=== PATIENT | male | born 1955 | race Caucasian/White ===

== ENCOUNTER 2020-02-07 08:21 | Emergency (ER) | payer BC, SELFPAY ==
--- NOTE | 2020-02-07 08:29 | ED.GENADULT ---
HPI - General Adult General Chief complaint: Ear Stated complaint: Ear lobe inflammed Time Seen by Provider: 02/07/20 08:29 Source: patient Mode of arrival: ambulatory Limitations: no limitations History of Present Illness HPI narrative: 64-year-old male patient presents to the [facility] with complaints of left ear pain. 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 Patient states typically he does get these inflamed areas to his left ear and he usually pops them on his own. Patient states he has an area to the left earlobe today that he is concerned could be infected. Patient states he really has not been using anything on the earlobe. Denies any fevers, body aches or chills. Related Data Allergies Allergy/AdvReac Type Severity Reaction Status Date / Time No Known Allergies Allergy Mild Verified 01/24/11 15:17 Review of Systems Review of Systems: Narrative: CONSTITUTIONAL: Denies fever, chills, or sweats. EYES: Denies visual changes, redness, or discharge. ENT: Denies rhinorrhea, congestion, sore throat, or otalgia. Positive left earlobe pain x5 days. CARDIOVASCULAR: Denies chest pain, palpitations, or edema. RESPIRATORY: Denies cough or dyspnea. GASTROINTESTINAL: Denies abdominal pain, nausea, vomiting, or diarrhea. GENITOURINARY: Denies dysuria or hematuria. SKIN: Denies rash or itching. MUSCULOSKELETAL: Denies back pain, joint pain, or myalgia. NEUROLOGIC: Denies headache, numbness, or weakness. PSYCHIATRIC: Denies anxiety or depression. PMFSH Comments At the time of my signature I agree with nursing past medical history, surgical, social, and family history. There is no relevant family history pertinent to the presenting complaint. Exam Narrative: Exam Narrative: GENERAL: Well-appearing, well-nourished, and in no acute distress. HEAD: Normocephalic, atraumatic. EYES: PERRLA and EOMI. ENT: Nares clear, no rhinorrhea or epistaxis. Mucous membranes moist. Patient has a raised reddened slightly warm area to the left earlobe. The area appears to be approximately 2 cm in diameter. It is tender to the touch. NECK: Supple. No lymphadenopathy CHEST: Clear to auscultation. No respiratory distress. HEART: Regular rate and rhythm. No murmur heard. Normal peripheral pulses. ABDOMEN: Soft, nontender, nondistended, normal active bowel sounds. EXTREMITIES: Normal range of motion. No edema. SKIN: Warm, dry, no rash. NEURO: No focal deficits. Alert and oriented x3. Course Vital Signs Vital signs: Vital Signs Pulse Rate 68 02/07/20 08:30 Respiratory Rate 18 02/07/20 08:30 Blood Pressure 153/86 H 02/07/20 08:30 Pulse Oximetry 98 02/07/20 08:30 Pulse Rate 68 02/07/20 08:30 Respiratory Rate 18 02/07/20 08:30 Blood Pressure 153/86 H 02/07/20 08:30 Pulse Oximetry 98 02/07/20 08:30 Vital signs reviewed. The patient has been informed that they may have pre-hypertension or Hypertension based on a BP reading in the department. I recommend that the patient call the primary care provider listed on their discharge instructions or a physician of their choice this week to arrange follow up for further evaluation of possible pre-hypertension or Hypertension Medical Decision Making Differential Diagnosis Differential Diagnosis: Differential diagnosis: Otitis media, otitis externa, perforated TM, infection of the outer ear, foreign body or cerumen impaction, ruptured TM, acute mastoiditis, ligament otitis externa, dehydration, pneumonia, sepsis, dental or intraoral infection, TMJ dysfunction Discussed with patient that the fact that he does have a history of cauliflower ear and because the tissue and the cartilage on the ear can be very sensitive and can actually cause more damage by opening it up as well as deformity I do not feel comfortable opening up at this time. Discussed with patient we will go ahead and place him on antibiotics and I encouraged hi
[2020-02-07 08:30] VITALS: BP 153/86; PULSE 68; RESP 18; O2SAT 98
[2020-02-07 08:53] VITALS: TEMP 36.8
== END 2020-02-07 08:49 | disposition home or self-care (01) ==
PROVIDERS: Emergency Provider Nurse Practitioner Family
DX: M95.12 Cauliflower ear, left ear (principal)
CPT/HCPCS: 99203; G0463

== ENCOUNTER 2022-08-01 17:29 | Emergency (ER) | payer OTHER, BC, SELFPAY ==
--- NOTE | ~2022-08-01 | XR_ITS ---
XR finger 1st LT min 2V DATE: 08/01/2022 18:01 INDICATION: Metal bar fell on thumb. Pain. TECHNIQUE: 3 views COMPARISON: None FINDINGS: No fracture or dislocation, periosteal reaction or bone destruction. IMPRESSION: No fracture or dislocation Reviewed, dictated and finalized at location A. IMPRESSION: No fracture or dislocation
[2022-08-01 17:39] VITALS: BP 156/82; PULSE 67; RESP 16; TEMP 36.9; O2SAT 98
--- NOTE | 2022-08-01 18:07 | ED.GENADULT ---
HPI - General Adult General Chief complaint: Extremity Injury, Upper Stated complaint: injury may 19 left thumb Source: patient Mode of arrival: ambulatory Limitations: no limitations History of Present Illness HPI narrative: Patient presents for evaluation of a catching sensation in the interphalangeal joint of the left thumb. He works fixing the country. He states that he was at work on 07/19/22 when a piece of metal equipment fell on his left hand. He immediately applied ice. He states he never noted any significant amount of swelling in the digit, which he attributes to application of ice. He has had minimal pain in that digit. He states he has noted a catching sensation as of 07/26/22. He informed his employer and they recommended he be evaluated by a medical provider. He reports some redness to palmar aspect of left hand. No additional complaints or concerns. Related Data Allergies Allergy/AdvReac Type Severity Reaction Status Date / Time No Known Allergies Allergy Mild Verified 01/24/11 15:17 Review of Systems Review of Systems: CONSTITUTIONAL: Denies fever, chills, or sweats. EYES: Denies visual changes, redness, or discharge. ENT: Denies rhinorrhea, congestion, sore throat, or otalgia. CARDIOVASCULAR: Denies chest pain, palpitations, or edema. RESPIRATORY: Denies cough or dyspnea. GASTROINTESTINAL: Denies abdominal pain, nausea, vomiting, or diarrhea. GENITOURINARY: Denies dysuria or hematuria. SKIN: Denies rash or itching. MUSCULOSKELETAL: Reports catching sensation in the interphalangeal joint of the left hand NEUROLOGIC: Denies headache, numbness, dizziness, or weakness. PSYCHIATRIC: Denies anxiety or depression. [facility] Past Medical History Medical History (Updated 08/01/22 @ 18:27 by MAYITO Houston, SHIRA) No pertinent past medical history Surgical History Surgical History History of removal of cyst Family History Family History Father Family history non-contributory Social History Social History Substance use: never Gender identity (if verbalized by the patient): Male Exam Narrative: GENERAL: Well-appearing, well-nourished, and in no acute distress. HEAD: Normocephalic, atraumatic. EYES: PERRLA and EOMI. ENT: Nares clear, no rhinorrhea or epistaxis. Mucous membranes moist. Oropharynx without tonsillar hypertrophy exudate or other lesions. Bilateral TMs pearly pro nonbulging NECK: Supple. No adenopathy or masses. No carotid bruits or JVD CHEST: Clear to auscultation. No respiratory distress. No wheezes rales or rhonchi HEART: Regular rate and rhythm. No murmur heard. Normal peripheral pulses. ABDOMEN: Soft, nontender, nondistended, normal active bowel sounds. EXTREMITIES: Intermittent delays with flexion and extension of the interphalangeal joint of the left thumb consistent with trigger finger SKIN: Warm, dry, no rash. NEURO: No focal deficits. Alert and oriented x3. PSYCH: Normal mood and affect. Course Course Emergency Course: This is a 67-year-old male who presented for evaluation of a catching sensation in the left thumb. He has evidence of trigger finger. There is no fracture to suggest this is the cause of his symptoms. He likely has ligamentous/tendon injury. Velcro wrist splint with thumb support may be of benefit. We will have him follow-up with plastics. He does not have considerable pain warranting prescription pain medication. Go to ER for temperature changes or intractable pain. Patient in agreement with plan of care. Level of Care: Express Care Visit Vital Signs Vital signs: Vital Signs Temperature 36.9 C 08/01/22 17:39 Pulse Rate 67 08/01/22 17:39 Respiratory Rate 16 08/01/22 17:39 Blood Pressure 156/82 H 08/01/22 17:39 Pulse Oximetry 98 08/01/22 17:39
== END 2022-08-01 18:36 | disposition home or self-care (01) ==
PROVIDERS: Emergency Provider Nurse Practitioner
DX: S69.82XA Other specified injuries of left wrist, hand and finger(s), initial encounter (principal); W20.8XXA Other cause of strike by thrown, projected or falling object, initial encounter; Y99.0 Civilian activity done for income or pay; M65.312 Trigger thumb, left thumb
CPT/HCPCS: 73140; 99213; G0463

== ENCOUNTER 2025-05-08 19:30 | Emergency (ER) | payer SELFPAY ==
--- OUTSIDE RECORDS SUMMARY | 2025-05-08 19:33 | XMS_ITS | Encounter Summary ---
Author Organization [facility] Address 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
--- OUTSIDE RECORDS SUMMARY | 2025-05-08 19:33 | XMS_ITS | Encounter Summary ---
Author Organization [facility] Address [address] [place] [address] Care Team Providers Care Community Living Coach Name Role Phone Patti Arellano DO Primary Care Provider Encounter Details Date Type Department Care Team (Late st Contact Info) Description 07/28/2002 Outpatient Historical [facility] [place] [facility] [address] [place] [address] [place] 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
--- OUTSIDE RECORDS SUMMARY | 2025-05-08 19:33 | XMS_ITS | Encounter Summary ---
Author Organization [facility] Address 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
--- OUTSIDE RECORDS SUMMARY | 2025-05-08 19:33 | XMS_ITS | Encounter Summary ---
Author Organization [facility] Address [address] [place] [address] Care Team Providers Care Real Estate Administrator Name Role Phone Patti Arellano DO Primary Care Provider Encounter Details Date Type Department Care Team (Late st Contact Info) Description 03/01/2000 Outpatient Historical HIS [facility] DEPT [place] 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
--- OUTSIDE RECORDS SUMMARY | 2025-05-08 19:33 | XMS_ITS | Encounter Summary ---
Author Organization [facility] Address 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
--- OUTSIDE RECORDS SUMMARY | 2025-05-08 19:33 | XMS_ITS ---
Author Organization [facility] Address [address] [facility] [address] [place] [address] Care Team Providers Care Superintendent Container Terminal Name Role Phone Migration, Provider Unavailable Unavailable REASON FOR VISIT EMR-Yovany Encounters Encounter Location Date Provider Diagnosis [facility] [address] [place], [place] [id number] 01/03/2025 Prov ider Migration Plan Of Treatment No Information Progress Notes * REJI BELLDOB:[birth year] (69 yo Other)Acc No.[id number]:01/03/2025 Patient: REJI FLORES :1955 A ge:69 Y S ex:Unknown Phone: Address:[address] [place] [address], [address] Subjective: * Chief Complaints: * E MR-Yovany * * Date:
--- OUTSIDE RECORDS SUMMARY | 2025-05-08 19:33 | XMS_ITS | Patient Health Record ---
Author Organization [facility] Address [address] [facility] [address] [place] [address] Care Team Providers Care Picker And Sorter Load And Unload Name Role Phone Migration, Provider Unavailable Unavailable Reason For Referral No Information Encounters Encounter Location Date Provider Diagnosis [facility] [address] [place], [place] [id number] 01/03/2025 Prov ider Migration [facility] [address] [place], [place] [id number] 01/04/2025 Prov ider Migration Plan Of Treatment No Information
--- OUTSIDE RECORDS SUMMARY | 2025-05-08 19:33 | XMS_ITS | Encounter Summary ---
Author Organization [facility] Address 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
--- OUTSIDE RECORDS SUMMARY | 2025-05-08 19:33 | XMS_ITS | Encounter Summary ---
Author Organization [facility] Address [address] [place] [address] Care Team Providers Care Social Media Project Manager Name Role Phone Patti Arellano DO Primary Care Provider Encounter Details Date Type Department Care Team (Late st Contact Info) Description 04/16/2003 Outpatient Historical [facility] Family Medicine [facility] [address] [place] [address] [place] 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
--- OUTSIDE RECORDS SUMMARY | 2025-05-08 19:33 | XMS_ITS | Encounter Summary ---
Author Organization [facility] Address 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
--- OUTSIDE RECORDS SUMMARY | 2025-05-08 19:33 | XMS_ITS | Encounter Summary ---
Author Organization [facility] Address [address] [place] [address] Care Team Providers Care Sas Analyst Name Role Phone Patti Arellano DO Primary Care Provider Encounter Details Date Type Department Care Team (Late st Contact Info) Description 07/02/2003 Outpatient Historical [facility] Family Medicine [facility] [address] [place] [address] [place] 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
--- OUTSIDE RECORDS SUMMARY | 2025-05-08 19:33 | XMS_ITS ---
Author Organization [facility] Address [address] [address] Care Team Providers Care Cashier Receptionist Name Role Phone Migration, Provider Unavailable Unavailable REASON FOR VISIT EMR-Yovany Encounters Encounter Location Date Provider Diagnosis [facility] [address] [place], [place] [id number] 01/04/2025 Prov ider Migration Plan Of Treatment No Information Progress Notes * REJI BELLDOB:[birth year] (69 yo Other)Acc No.[id number]:01/04/2025 Patient: REJI FLORES :1955 A ge:69 Y S ex:Unknown Phone: Address:[address] [place] [address], [address] Subjective: * Chief Complaints: * E MR-Yovany * * Date:
--- OUTSIDE RECORDS SUMMARY | 2025-05-08 19:33 | XMS_ITS | Continuity of Care Document ---
Author Name [facility] Organization [facility] Care Team Providers Care Silica Dry Press Helper Name Role Phone [facility] Unavailable Unavailable Problems Combined list of problems from Department of Defense and Veterans Affairs facilities. It does not include entries that were removed or entered in error. Problem Status Onset Date Problem Type Date of Resolution Comments Source Epidermal Cyst * (ICD-9-CM 706.2) Active Condition [facility] Tobacco Use Disorder * (ICD-9-CM 305.1) Active Condition [facility] Immunizations Combined list of available immunizations from the Department of [facility] and [facility] facilities. Immunization Series Date Given Administered By Site Reaction Lot Number CVX Code Drug Assistant Construction Superintendent Status Comments Source TDAP 2007 115 complet ed [facility] Encounters Combined list of: 1) Encounters from Department of Veterans Affairs facilities going backup to the last 18 months, not all [place] inpatient encounters are included; 2) Encounters from the Department of [facility] facilities going backup to 280 months. Location Location Details Encounter Type Encounter Number Reason For Visit Attending Provider ADM Date DC Date Status Disposition Source [facility] Outpatient Encounter [id number] 05/19 [facility] Social History Combined list of available smoking, tobacco, and other social history from Department of [facility] and Veterans Affairs facilities. Social History Type Response Date Comment Sourc e Tobacco smoking status [facility]IS TOBACCO OFFERED STOP SMOKING CLINIC 01/24/2008 [facility] History of tobacco use CURRENT TOBACCO USER 01/24/2008 [facility]
--- OUTSIDE RECORDS SUMMARY | 2025-05-08 19:33 | XMS_ITS | Encounter Summary ---
Author Organization [facility] Address 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
--- OUTSIDE RECORDS SUMMARY | 2025-05-08 19:34 | XMS_ITS | Encounter Summary ---
Author Organization [facility] Address [address] [place] [address] Care Team Providers Care Clinical Nurse Educator Name Role Phone Patti Arellano DO Primary Care Provider Encounter Details Date Type Department Care Team (Late st Contact Info) Description 02/09/2000 Outpatient Historical HIS [facility] DEPT [place] 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
--- OUTSIDE RECORDS SUMMARY | 2025-05-08 19:34 | XMS_ITS | Referral Summary ---
Author Organization [address] Address [address] [place] [address] Care Team Providers Care Band Sawing Machine Operator Name Role Phone No, Physician Primary Care Provider [phone] Allergies No known active allergies Medications methylPREDNISolo ne (Medrol, Asif,) 4 mg DosepackIndicati ons:Rash and nonspecific skin eruption follow package directions 1 packet Active Active Problems Problem Noted Date Diagnosed Date Epidermoid cyst of skin 10/23/2023 HTN (hypertension), benign 04/16/2014 Tobacco use disorder 04/16/2014 Immunizations Immunization Administration Dates Next Due Pfizer SARS-CoV-2 Monovalent Vaccination (12+ Yrs) BYERS-READY TO USE 10/20/2021 Social History Tobacco Use Types Packs/Day Years Used Date Smoking Tobacco: Former Cigarettes Smokeless Tobacco: Never Comments:1 pack every 3 days . Personal Safety Answer Date Recorded Getting School Help Needed Not on file 10/23 Sex and Gender Information Value Date Recorded Sex Assigned at Not on file Legal Sex Male 2:27 PM CDT Gender Identity Not on file Sexual Orientation Not on file Last Filed Vital Signs Vital Sign Reading Time Taken Comments Blood Pressure 164/90 10/23/2023 7:00 PM CIVIL ENGINEERING MANAGER Pulse 71 10/23/2023 7:00 PM CIVIL ENGINEERING MANAGER Temperature 36.6 C (97.8 F) 10/23/2023 7:00 PM CIVIL ENGINEERING MANAGER Respiratory Rate 18 10/23/2023 7:00 PM CIVIL ENGINEERING MANAGER Oxygen Saturation 96% 10/23/2023 7:00 PM CIVIL ENGINEERING MANAGER Inhaled Oxygen Concentration - - Weight 114.3 kg (252 lb) 10/23/2023 7:00 PM CIVIL ENGINEERING MANAGER Height 182.9 cm (6' 0.01) 10/23/2023 7:00 PM CS T Body Mass Index 34.17 10/23/2023 7:00 PM CIVIL ENGINEERING MANAGER Plan of Treatment Not on file Insurance Care Teams Band Sawing Machine Operator Relationship Specialty Start Date End Date No, Physician PCP - General 04/15/20
--- OUTSIDE RECORDS SUMMARY | 2025-05-08 19:34 | XMS_ITS | Clinical Summary ---
Author Organization [address] Address [address] [place] [address] Care Team Providers Care Office Specialist Name Role Phone No, Physician Primary Care Provider Allergies No known active allergies Medications methylPREDNISolo ne (Medrol, Asif,) 4 mg DosepackIndicati ons:Rash and nonspecific skin eruption follow package directions 1 packet Active Active Problems Problem Noted Date Diagnosed Date Epidermoid cyst of skin 10/23/2023 HTN (hypertension), benign 04/16/2014 Tobacco use disorder 04/16/2014 Immunizations Immunization Administration Dates Next Due Pfizer SARS-CoV-2 Monovalent Vaccination (12+ Yrs) BYERS-READY TO USE 10/20/2021 Surgical History Surgery Date Site/Laterality Comments NO PAST SURGERIES Medical History Medical History Date Comments No known health problems Family History Medical History Relation Name Comments No Known Problems Brother Bone cancer Father Lung cancer Father Sarcoidosis Mother No Known Problems Sister Relation Name Status Comments Brother Alive Father Mother Sister Alive Social History Tobacco Use Types Packs/Day Years [...] on file Sexual Orientation Not on file Obstetrics History Last Filed Vital Signs Vital Sign Reading Time Taken Comments Blood Pressure 164/90 10/23/2023 7:00 PM LEATHER PARTS MATCHER Pulse 71 10/23/2023 7:00 PM LEATHER PARTS MATCHER Temperature 36.6 C (97.8 F) 10/23/2023 7:00 PM LEATHER PARTS MATCHER Respiratory Rate 18 10/23/2023 7:00 PM LEATHER PARTS MATCHER Oxygen Saturation 96% 10/23/2023 7:00 PM LEATHER PARTS MATCHER Inhaled Oxygen Concentration - - Weight 114.3 kg (252 lb) 10/23/2023 7:00 PM LEATHER PARTS MATCHER Height 182.9 cm (6' 0.01) 10/23/2023 7:00 PM CS T Body Mass Index 34.17 10/23/2023 7:00 PM LEATHER PARTS MATCHER Plan of Treatment Health Maintenance Due Date Last Done Comments Colon Cancer Screening-Colonoscopy 1955 Depression Screening 1955 Fall Risk Assessment 1955 Hepatitis C Screening 1955 Prostate Cancer Screening-PSA 1955 Hepatitis B Screening 1975 Pneumococcal vaccine 65+ (2 of 2 - PCV) 09/16/2021 09/16/2020 Abdominal Aortic Aneurysm (A AA) Screen 2022 Well Visit 65+ 2022 Covid-19 Vaccine (2 - 2023-2 5 season) 2024 10/20/2021 Influenza Vaccine (#1) 2025 0, 09/10/2019, 09/08/2018, Additional history exists DTaP/Tdap/Td Vaccine (3 - Td or Tdap) 12/28/2027 12/27/2017, 12/27/2007 Zoster Vaccine Completed 06/02/2018, 01/18/2018 Insurance Care Teams Office Specialist Relationship Specialty Start Date End Date No, Physician PCP - General 04/15/20
--- OUTSIDE RECORDS SUMMARY | 2025-05-08 19:35 | XMS_ITS | Clinical Summary ---
Author Organization [facility] [facility] Address [address] [place] [address] Care Team Providers Care Elevator Constructor Hydraulic Name Role Phone Axeldennise Patti Pradeep RINCON Primary Care Provider Allergies No known active allergies Medications diclofenac sodium (VOLTAREN) 1 % gelIndications:P ain in both knees, unspecified chronicity Apply 2 Grams to affected area 3 times daily as needed for Pain. 100 Gram 2 0 Active Active Problems Problem Noted Date Diagnosed Date HTN (hypertension), benign 04/16/2014 Tobacco use disorder 04/16/2014 Resolved Problems Problem Noted Date Diagnosed Date Resolved Date Lateral epicondylitis (tennis elbow) 04/16/2014 12/27/2017 Shingles 09/28/2011 12/27/2017 Immunizations Immunization Administration Dates Next Due (ADACEL/BOOSTRIX)(10 YR UP) TDAP VACCINE, 0.5ML, IM 12/27/2017 (PNEUMOVAX 23)(50 YRS UP) PN EUMOCOCCAL POLYSACCHARIDE (PPV23) 0.5 ML, IM 09/16/2020 Influenza Seasonal Unspecified Formulation IM Family History Medical History Relation Name Comments Colon Cancer Neg Hx Social History Tobacco Use Types Packs/Day Years Used Date Smoking Tobacco: Every Day Cigarettes 0.3 20 Started: 12/27/1997; Last attempted to quit: 12/27/2017 Smokeless Tobacco: Never Tobacco Cessation:Ready to Q uit: Yes; Counseling Given: No Alcohol Use Standard Drinks/Week Comments Yes 0 (1 standard drink = 0.6 oz pur e alcohol) occasional Sex and Gender Information Value Date Recorded Sex Assigned at Not on file Legal Sex Male 2:42 AM SHEET METAL SHOP SUPERVISOR Gender Identity Not on file Sexual Orientation Not on file Occupation Industry Job Start Date Job End Date Not on file Not on file Not on file Not on file Last Filed Vital Signs Vital Sign Reading Time Taken Comments Blood Pressure 130/74 09/16/2020 8:06 AM SHEET METAL SHOP SUPERVISOR Pulse 60 09/16/2020 8:06 AM SHEET METAL SHOP SUPERVISOR Temperature 36.5 C (97.7 F) 09/16/2020 8:06 AM SHEET METAL SHOP SUPERVISOR Respiratory Rate 18 03/01/2018 8:27 AM CDT Oxygen Saturation 99% 09/16/2020 8:06 AM SHEET METAL SHOP SUPERVISOR Inhaled Oxygen Concentration - - Weight 104.3 kg (230 lb) 09/16/2020 8:06 AM SHEET METAL SHOP SUPERVISOR Height 182.9 cm (6') 09/16/2020 8:06 AM SHEET METAL SHOP SUPERVISOR Body Mass Index 31.19 09/16/2020 8:06 AM SHEET METAL SHOP SUPERVISOR Plan of Treatment Health Maintenance Due Date Last Done Comments FIT-DNA Q 3 years 2002 FIT/FOBT Q 1 year 2002 Flex Sig/CT Colonography Q 5 years 2002 ZOSTER VACCINE (1 of 2) 2007 COLORECTAL SCREENING 03/01/2021 03/01/2018, 03/01/2018, 03/01/2018 Colorectal Cancer Screening 03/01/2021 PNEUMOCOCCAL VACCINE 50+ YEA RS (2 of 2 - PCV) 09/16/2021 09/16/2020 Preventative Visit- Commercial 10/08/2024 1 11/17/2019, 12/27/2017, 04/16/2014, Additional history exists INFLUENZA VACCINE (#1) 2025 07/22/2020 DTAP/TDAP/TD VACCINES (3 - T d or Tdap) 12/28/2027 12/27/2017, 12/27/2007 RSV VACCINE (60+ or ) (1 - 1-dose 75+ series) 2032 Procedures Procedure Name Priority Date/Time Associated Diagnosis Comments COLONOSCOPY REPORT 03/01/2018 8: 09 AM CDT from Last 3 Months or Most Recently Relevant to Health Maintenance Results * COLONOSCOPY REPORT (03/01/2018 8:09 AM CDT) Narrative Procedure Note Kelvin Daigle MD - 03/01/2018 8:08 AM CDT [facility] Endoscopy Patient Name: Av Phillip Procedure Date: 03/01/2018 Date of : 1955 Admit Type: Outpatient Attending MD: Kelvin Daigle MD Procedure: Colonoscopy Indications: Screening for colorectal malignant neoplasm, This is the patient's first colonoscopy Providers: Kelvin Daigle MD Referring MD: Patti Arellano DO Medicines: TIVA Complications: No immediate complications. Procedure: Informed consent was obtained for the procedure, including moderate sedation after risks were discussed. Based on the pre-procedure assessment, including review of the patient's medical history, medications, allergies, and review of systems, the patient was deemed to be an appropriate candidate for sedation. A timeout was performed. Continuous ECG monitoring, pulse oximetry, blood pressure monitoring, and direct observation were performed. The was introduced through the anus and advanced to the terminal ileum. The colonoscopy was performed without difficulty. The patient tolerated the procedure well. The quality of the bowel preparation was excellent. Estimated Blood Loss: Estimated blood loss: none. Findings: The terminal ileum appeared normal. A 10 mm polyp was found in the distal descending colon. The polyp was sessile. The polyp was removed with a cold snare. Resection and retrieval were complete. To prevent bleeding after the polypectomy, one hemostatic clip was successfully placed (MR conditional). There was no bleeding at the end of the procedure. The retroflexed view of the distal rectum and anal verge was normal and showed no anal or rectal abnormalities. Impression: - The examined portion of the ileum was normal. - One 10 mm polyp in the distal descending colon, removed with a cold snare. Resected and retrieved. Clip (MR conditional) was placed. - The distal rectum and anal verge are normal on retroflexion view. Recommendation: - Await pathology results. - Repeat colonoscopy in 3 - 5 years for surveillance based on pathology results. Kelvin Daigle MD 03/01/2018 8:08:01 AM This report has been signed electronically. Number of Addenda: [address]; [place] [address] Kelvin Daigle MD GI PROCEDURE ORDERABLES Final R esult from Last 3 Months or Most Recently Relevant to Health Maintenance Insurance [employer] BLUE PREFERRED Advance Directives For more information, please contact: [phone] * Full Code (Latest Code Status on File) Date Activated Date Inactivated Comments 03/01/2018 7:04 AM 03/01/2018 10:41 AM Care Teams Elevator Constructor Hydraulic Relationship Specialty Start [place] [address] [address] [place] [address] PCP - General Family Practice 03/17/15
--- OUTSIDE RECORDS SUMMARY | 2025-05-08 19:36 | XMS_ITS | Continuity of Care Document ---
Author Name [facility] Organization [facility] Care Team Providers Care Mail Rider Name Role Phone [facility] Unavailable Unavailable Problems Combined list of problems from Department of Defense and Veterans Affairs facilities. It does not include entries that were removed or entered in error. Problem Status Onset Date Problem Type Date of Resolution Comments Source Epidermal Cyst * (ICD-9-CM 706.2) Active Condition [facility] Tobacco Use Disorder * (ICD-9-CM 305.1) Active Condition [facility] Immunizations Combined list of available immunizations from the Department of [facility] and Veterans [facility] facilities. Immunization Series Date Given Administered By Site Reaction Lot Number CVX Code Drug Table Games Floor Supervisor Status Comments Source TDAP 2007 115 complet ed [facility] Encounters Combined list of: 1) Encounters from Department of Veterans Affairs facilities going backup to the last 18 months, not all [place] inpatient encounters are included; 2) Encounters from the Department of [facility] facilities going backup to 280 months. Location Location Details Encounter Type Encounter Number Reason For Visit Attending Provider ADM Date DC Date Status Disposition Source [facility] Outpatient Encounter [id number] 05/19 [facility] N Social History Combined list of available smoking, tobacco, and other social history from Department of [facility] and Veterans Affairs facilities. Social History Type Response Date Comment Sourc e Tobacco smoking status NHIS TOBACCO OFFERED STOP SMOKING CLINIC 01/24/2008 [facility] History of tobacco use CURRENT TOBACCO USER 01/24/2008 [facility]
[2025-05-08 19:37] VITALS: BP 214/85; PULSE 75; RESP 24; TEMP 36.8; O2SAT 99
--- NOTE | 2025-05-08 19:37 | ED.LOWEXIN ---
HPI - Extremity Injury (Lower) General Stated Complaint: right ankle swelling Time Seen by Provider: 05/08/25 19:38 Source: patient Mode of arrival: ambulatory Limitations: no limitations History of Present Illness HPI Narrative: 69 y/o male presented for c/o bilateral ankle swelling and elevated BP since 03/28/25 while on vacation. States it started after a sunburn to both feet. Pt says I feel off. Denies chest pain, palpitations, sob, wheezing, n/v/d/f/c. Says swelling is better when he wakes in the morning. States he is a and has not seen a doctor for several years. Denies hx HTN, states he was told it is borderline in the past. hx smoking; quit 4 years ago, and alcohol, says mild to moderate. Related Data Home Medications ?Medication ?Instructions ?Recorded ?Confirmed ?Last Taken ?Type No Home Medications 05/08/25 05/08/25 Unknown History Allergies Allergy/AdvReac Type Severity Reaction Status Date / Time No Known Allergies Allergy Mild Verified 05/08/25 19:32 Review of Systems Review of Systems: CONSTITUTIONAL: Denies body aches, fever, chills, or sweats. EYES: Denies visual changes, redness, or discharge. ENT: Denies rhinorrhea, congestion, sore throat, or otalgia. CARDIOVASCULAR: Denies chest pain, palpitations, Reports BLE edema. RESPIRATORY: Denies cough or dyspnea. GASTROINTESTINAL: Denies abdominal pain, nausea, vomiting, or diarrhea. GENITOURINARY: Denies dysuria or hematuria. SKIN: Denies rash, or wounds. MUSCULOSKELETAL: Denies back pain, joint pain, or myalgia. NEUROLOGIC: Denies headache, numbness, tingling, or weakness. PSYCH: Denies depression or anxiety. All systems reviewed & are unremarkable except as noted in HPI and below PMFSH Past Medical History Medical History (Updated 05/08/25 @ 20:00 by Yasmin Pierce APRN) No pertinent past medical history Surgical History Surgical History History of removal of cyst Family History Family History Father Family history non-contributory Social History Social History (Updated 05/08/25 @ 19:57 by Yasmin Pierce, COMPUTER HARDWARE ENGINEER) Smoking status: Former smoker Tobacco type: cigarettes Substance use: never Gender identity (if verbalized by the patient): Male Comments At time of signature, I have reviewed and agree with nursing past medical, surgical, social and family history unless otherwise noted. Please see nursing chart for further information. There is no relevant family history pertinent to the presenting complaint Exam Narrative: GENERAL: Well-appearing and in no acute distress. HEAD: Normocephalic, atraumatic. EYES: No redness or drainage. Conjunctivae normal. ENT: Mucous membranes pink and moist. No rhinorrhea. NECK: Normal AROM. CHEST: No respiratory distress. Clear to auscultation. HEART: Regular rate and rhythm. No murmur appreciated. Normal peripheral pulses. ABDOMEN: Soft, nontender, nondistended, normal active bowel sounds. MUSCULOSKELETAL: No bony tenderness. EXTREMITIES: Normal range of motion. BLE 2+ edema. SKIN: Warm, dry, no rash. Capillary refill normal. Normal skin turgor. NEURO: No focal deficits. Alert and oriented x3. Gait steady. PSYCH: Normal affect. Course Course Emergency Course: Patient is aware of diagnosis, understands and agrees to treatment plan. Anticipatory guidance given. Patient agrees to follow-up as directed and is aware of reasons to seek care at the emergency department. Portions of this record may have been created with voice recognition software Level of Care: Express Care Visit Transfer Transfered to: [place] Transportation: Other ( Private vehicle) Transfer rationale: Pt is agreeable to transfer. Requests transfer to [facility] via private vehicle; declined ambulance. Risks of transportation reviewed with pt including injury, worsening of condition and . v/u. Report called to hospital, spoke with Dr Pittman, accepting physician. Pt is in stable condition at time of transfer. Advised to remain NPO and go directly to the hospital. MDM - Extremity Injury (Lower) MDM Narrative Medical decision making narrative: Discussed physical exam findings, BLE edema, elevated bp. advised ER transfer. Patient is a and requests the [facility] due to cost. Differential Diagnosis Differential diagnosis: Likely other (DVT, CHF, PVD, venous insufficiency, medication related, renal failure, gravitational edema, cellulitis) Discharge Plan Discharge Clinical Impression: Bilateral leg edema Patient Disposition: Acute Care Hospital Condition: Stable Patient Language: [place] Leonean Follow-up/Referrals: PHYSICIAN,MACHINE PRECISION ENGRAVER [Primary Care Provider] - Time of Disposition: 20:00
[2025-05-08 19:46] VITALS: BP 200/88
== END 2025-05-08 20:04 | disposition short-term general hospital (02) ==
PROVIDERS: Emergency Provider Nurse Practitioner Family
DX: R60.0 Localized edema (principal); Z87.891 Personal history of nicotine dependence
CPT/HCPCS: 99212; G0463